=== PATIENT | male | born 1985 ===

== ENCOUNTER → 2016-09-24 | Outpatient (CLI) | payer BC ==
--- NOTE | 2016-09-24 13:45 | XR ---
EXAMINATION TYPE: XR cervical spine comp DATE OF EXAM: 09/24/2016 12:03 PM COMPARISON: NONE HISTORY: 31-year-old male with pain, comes and goes for a couple months. TECHNIQUE: 5 views FINDINGS: Limited obliquity on the oblique view for assessment of the right-sided neuroforamen. No predental s pace widening or prevertebral soft tissue swelling. Very minimal disc interspace narrowing seen withi n the mid to lower cervical spine. There is also straightening of the normal cervical lordosis probab ly preserved alignment. Normal odontoid view. IMPRESSION: Suggestion of mild degenerative disc disease in the mid to lower cervical spine. Reversal of the norm al cervical lordosis could be positional or due to muscle spasm.
== END | disposition home or self-care (01) ==
LOC: RADXRMAIN 11:43
PROVIDERS: ATTEND Radiology Diagnostic Radiology
DX: M54.2 Cervicalgia (principal)
CPT/HCPCS: 72050

== ENCOUNTER → 2019-12-31 | Outpatient (CLI) | payer OTHER ==
[2019-12-31 08:11] LABS: HCT 44.1 % (39.0-53.0); HGB 14.6 gm/dL (13.0-17.5); MCV 90.8 fL (80.0-100.0); Mean Platelet Volume 8.5; Platelet Count 228 k/uL (150-450); RBC 4.86 m/uL (4.30-5.90); RDW 12.4 % (11.5-15.5); WBC 6.9 k/uL (3.8-10.6)
[2019-12-31 18:43] LABS: African American GFR (CKD) 100.3 (60.0-200.0); Albumin 5.1 g/dL (3.80-4.90); Albumin/Globulin Ratio 2.04 (1.60-3.17); Calcium 10.3 mg/dL (8.7-10.3); Chol/HDL Ratio 3.29; Globulin 2.5 g/dL (1.6-3.3); LDL Cholesterol,Calculated 113.2 mg/dL (0.0-131.0); Non-African American GFR(CKD) 86.5 (60.0-200.0); Potassium 4.8 mmol/L (3.5-5.5); Total Bilirubin 0.9 mg/dL (0.2-1.2); Total Protein 7.6 g/dL (6.2-8.2); VLDL Calculation 12.8 mg/dL (5.00-40.00)
[2020-01-01 00:12] LABS: Hemoglobin A1C 5.1 % (4.0-6.0)
== END | disposition home or self-care (01) ==
LOC: LABWHC1 07:26
PROVIDERS: ATTEND Internal Medicine
DX: Z00.00 Encounter for general adult medical examination without abnormal findings (principal); R63.1 Polydipsia
CPT/HCPCS: 36415; 80053; 80061; 82306; 83036; 84439; 84443; 85027

== ENCOUNTER → 2020-04-23 | Outpatient (CLI) | payer OTHER | END | disposition home or self-care (01) | LOC: LABWHC1 07:41 | PROVIDERS: ATTEND Internal Medicine | DX: R05 Cough (principal) | CPT/HCPCS: 87635; U0003 ==